=== PATIENT | female | born 1970 | race Caucasian/White ===

== ENCOUNTER → 2016-12-18 | Outpatient (CLI) | payer BC ==
[2016-12-18 08:28] LABS: HEMOGLOBIN 13.9 gm/dl (12.3-15.3); RED BLOOD COUNT 5.38 M/UL (4.00-5.10); WHITE BLOOD COUNT 8.2 K/UL (4.5-11.0)
[2016-12-18 08:51] LABS: BUN/CREATININE RATIO 19 (0-10)
== END ==
LOC: LAB 08:02
PROVIDERS: Nurse Practitioner Family
DX: E11.9 Type 2 diabetes mellitus without complications (principal); I10 Essential (primary) hypertension; E03.9 Hypothyroidism, unspecified
CPT/HCPCS: 80053; 80061; 82043; 82570; 83036; 84439; 84443; 85025

== ENCOUNTER → 2017-05-08 | Outpatient (CLI) | payer BC | LOC: MAMO 08:00 | DX: Z12.31 Encounter for screening mammogram for malignant neoplasm of breast (principal) | CPT/HCPCS: G0202 ==

== ENCOUNTER → 2020-08-29 | Outpatient (CLI) | payer BC ==
[~2020-08-29] MED LIST: ALLERGY RELIEF180 MG PO; AZITHROMYCIN250 MG PO; BUSPAR 5MG TABLE5 MG PO; COZAAR50 MG PO; CYMBALTA 20 MG20 MG PO; DECADRON6 MG PO; FEOSOL325 MG PO; FLEXERIL 10 MG10 MG PO; GLUCOPHAGE XR500 MG PO; HYDROXYCHLOROQ200 MG PO; IBUPROFEN600 MG PO; IBUPROFEN800 MG PO; JARDIANCE10 MG PO; KEFLEX CAP 500500 MG PO; NAPROSYN500 MG PO; NEXIUM20 M1 PO; PERCOCET 5/325 T1 EA PO; SYNTHROID88 MCG PO; TENORMIN 25 MG25 MG PO; TRULICITY1.5 MG/0.5 SQ; VITAMIN C 500500 MG PO; VITAMIN D250000 UNIT PO; [UNRECOGNIZED DRUG - OTHER] TD
[2020-08-29 10:21] LABS: HEMOGLOBIN 14.5 gm/dl (12.3-15.3); RED BLOOD COUNT 5.22 M/UL (4.00-5.10); WHITE BLOOD COUNT 5.2 K/UL (4.5-11.0)
[2020-08-29 10:37] LABS: BUN/CREATININE RATIO 18 (0-10)
[2020-08-31 07:10] LABS: RHEUMATOID ARTHRITIS FACTOR <10.0 IU/mL (0.0-13.9); VITAMIN D, 25-HYDROXY 19.2 ng/mL (30.0-100.0)
[2020-08-31 13:08] LABS: ALKALINE PHOSPHATASE, S 343 IU/L (39-117); BONE FRACTION: 20 % (14-68); INTESTINAL FRAC.: 23 % (0-18); LIVER FRACTION: 58 % (18-85)
== END ==
LOC: LAB 09:59
PROVIDERS: Nurse Practitioner Family
DX: I10 Essential (primary) hypertension (principal); E11.9 Type 2 diabetes mellitus without complications; E03.9 Hypothyroidism, unspecified; M25.50 Pain in unspecified joint; E53.8 Deficiency of other specified B group vitamins; E55.9 Vitamin D deficiency, unspecified; R74.9 Abnormal serum enzyme level, unspecified
CPT/HCPCS: 80053; 80061; 82607; 83036; 83520; 83540; 83550; 84075; 84080; 84443; 85027; 85652; 86140; 86431

== ENCOUNTER → 2021-03-21 | Outpatient (CLI) | payer BC ==
[2021-03-21 10:32] LABS: HEMOGLOBIN 13.7 gm/dl (12.3-15.3); RED BLOOD COUNT 4.95 M/UL (4.00-5.10); WHITE BLOOD COUNT 5.1 K/UL (4.5-11.0)
[2021-03-21 10:48] LABS: BUN/CREATININE RATIO 13 (0-10)
== END ==
LOC: LAB 10:08
PROVIDERS: Nurse Practitioner Family
DX: E11.9 Type 2 diabetes mellitus without complications (principal)
CPT/HCPCS: 80053; 80061; 82043; 83036; 84443; 85025

== ENCOUNTER → 2021-05-09 | Outpatient (CLI) | payer BC | LOC: MAMO 08:22 | DX: Z12.31 Encounter for screening mammogram for malignant neoplasm of breast (principal) | CPT/HCPCS: 77063; 77067 ==

== ENCOUNTER → 2021-06-30 | Outpatient (CLI) | payer BC ==
[2021-06-30 08:13] LABS: HEMOGLOBIN 14.8 gm/dl (12.3-15.3); RED BLOOD COUNT 5.38 M/UL (4.00-5.10); WHITE BLOOD COUNT 5.4 K/UL (4.5-11.0)
[2021-06-30 09:30] LABS: BUN/CREATININE RATIO 15 (0-10)
== END ==
LOC: LAB 05:53
PROVIDERS: Nurse Practitioner Family
DX: I10 Essential (primary) hypertension (principal); E11.9 Type 2 diabetes mellitus without complications; E03.9 Hypothyroidism, unspecified
CPT/HCPCS: 36415; 80053; 80061; 83036; 84443; 85025

== ENCOUNTER → 2021-07-06 | Outpatient (CLI) | payer BC | LOC: KOH-I 09:52 | DX: E04.2 Nontoxic multinodular goiter (principal) | CPT/HCPCS: 76536 ==

== ENCOUNTER → 2021-10-02 | Outpatient (CLI) | payer BC ==
[2021-10-02 09:30] LABS: HEMOGLOBIN 13.9 gm/dl (12.3-15.3); RED BLOOD COUNT 5.09 M/UL (4.00-5.10); WHITE BLOOD COUNT 6.5 K/UL (4.5-11.0)
[2021-10-02 09:53] LABS: BUN/CREATININE RATIO 23 (0-10)
== END ==
LOC: LAB 05:56
PROVIDERS: Nurse Practitioner Family
DX: E11.9 Type 2 diabetes mellitus without complications (principal); E78.2 Mixed hyperlipidemia; E03.9 Hypothyroidism, unspecified
CPT/HCPCS: 80053; 80061; 83036; 84439; 84443; 85025

== ENCOUNTER → 2021-11-10 | Outpatient (CLI) | payer BC | LOC: EMI 14:58 | DX: M51.24 Other intervertebral disc displacement, thoracic region (principal); M40.204 Unspecified kyphosis, thoracic region | CPT/HCPCS: 72146 ==

== ENCOUNTER → 2022-01-25 | Outpatient (CLI) | payer BC | LOC: KOH-I 11:10 | DX: E04.2 Nontoxic multinodular goiter (principal) | CPT/HCPCS: 76536 ==

== ENCOUNTER → 2022-03-22 | Outpatient (CLI) | payer BC | LOC: EMI 10:33 | DX: M51.16 Intervertebral disc disorders with radiculopathy, lumbar region (principal) | CPT/HCPCS: 72148 ==

== ENCOUNTER → 2022-04-09 | Outpatient (CLI) | payer BC ==
[2022-04-09 07:14] LABS: HEMOGLOBIN 12.9 gm/dl (12.3-15.3); RED BLOOD COUNT 4.9 M/UL (4.00-5.10); WHITE BLOOD COUNT 4.3 K/UL (4.5-11.0)
[2022-04-09 07:32] LABS: BUN/CREATININE RATIO 23 (0-10)
[2022-04-10 12:09] LABS: THYROXINE (T4) 7.4 ug/dL (4.5-12.0)
== END ==
LOC: LAB 05:52
PROVIDERS: Nurse Practitioner Family
DX: E11.9 Type 2 diabetes mellitus without complications (principal); E04.1 Nontoxic single thyroid nodule
CPT/HCPCS: 80053; 80061; 82043; 83036; 84436; 84439; 84443; 84481; 85025